=== PATIENT | female | born 1990 | race Two or more races ===

== ENCOUNTER → 2016-09-27 | Outpatient (CLI) | payer OTHER | LOC: RAD 08:50 | DX: R13.10 Dysphagia, unspecified (principal) | CPT/HCPCS: 74246 ==

== ENCOUNTER 2020-04-23 10:50 | Emergency (ER) | payer OTHER ==
[~2020-04-23 10:50] MED LIST: IBUPROFEN600 MG PO; MACROBID 100 M100 MG PO; NORCO 5-325 TA1 EACH PO; PERCOCET 5/325 T1 EA PO
[2020-04-23 11:51] LABS: RED BLOOD COUNT 3.45 M/UL (4.00-5.10); WHITE BLOOD COUNT 7.4 K/UL (4.5-11.0)
[2020-04-23 12:31] LABS: BUN/CREATININE RATIO 28 (0-10)
== END 2020-04-23 13:25 | disposition home or self-care (01) ==
LOC: ER1 10:50
PROVIDERS: Physician Assistant
DX: O99.012 Anemia complicating pregnancy, second trimester (principal); O99.282 Endocrine, nutritional and metabolic diseases complicating pregnancy, second trimester; E16.2 Hypoglycemia, unspecified; Z3A.27 27 weeks gestation of pregnancy
CPT/HCPCS: 80053; 80307; 81001; 82962; 83605; 85025; 87086; 99284

== ENCOUNTER 2020-07-06 12:13 | Inpatient (IN) | payer OTHER ==
[~2020-07-06] VITALS: Ht 165.1 cm; Wt 104.3 kg
[2020-07-06 14:29] LABS: RED BLOOD COUNT 3.83 M/UL (4.00-5.10); WHITE BLOOD COUNT 10.3 K/UL (4.5-11.0)
[2020-07-06] MEDS ORDERED: PRENATAL VITAM1 EAC3 PO (16:01)
[2020-07-06] MEDS ORDERED: SYNTHROID25 MCG PO (16:02)
[2020-07-06] MEDS ORDERED: FERREX 150 FOR1 EAC1 PO (18:44)
[2020-07-06] MEDS ORDERED: HYDROCODON-ACE1 EAC4 PO (18:44)
[2020-07-06] MEDS ORDERED: COLACE 100MG C100 MG PO (18:44)
[2020-07-06] MEDS ORDERED: IBUPROFEN600 MG PO (18:44)
[2020-07-07 05:30] LABS: HEMOGLOBIN 10.4 gm/dl (12.3-15.3)
== END 2020-07-07 21:32 | disposition home or self-care (01) | DRG 807 ==
LOC: GENOP 12:13 → OB 14:03
PROVIDERS: ADMIT Obstetrics & Gynecology
PROC: 10E0XZZ Delivery of Products of Conception, External Approach (ICD-10-PCS; principal; 2020-07-06)
PROC: 10907ZC Drainage of Amniotic Fluid, Therapeutic from Products of Conception, Via Natural or Artificial Opening (ICD-10-PCS; 2020-07-06)
DX: O26.853 Spotting complicating pregnancy, third trimester (principal); Z37.0 Single live birth; Z3A.37 37 weeks gestation of pregnancy; O99.283 Endocrine, nutritional and metabolic diseases complicating pregnancy, third trimester; E03.9 Hypothyroidism, unspecified; O99.353 Diseases of the nervous system complicating pregnancy, third trimester; G43.909 Migraine, unspecified, not intractable, without status migrainosus
CPT/HCPCS: 36415; 51702; 81001; 83518; 85014; 85018; 85025; 90707; 90715; J2590; J2795; J7120; U0002

== ENCOUNTER 2020-12-14 19:08 | Emergency (ER) | payer OTHER ==
[~2020-12-14 19:08] MED LIST changes: +COLACE 100MG C100 MG PO; +FERREX 150 FOR1 EAC1 PO; +HYDROCODON-ACE1 EAC4 PO; +PRENATAL VITAM1 EAC3 PO; +SYNTHROID25 MCG PO
[2020-12-14 19:53] LABS: HEMOGLOBIN 12.8 gm/dl (12.3-15.3); RED BLOOD COUNT 4.67 M/UL (4.00-5.10); WHITE BLOOD COUNT 8.1 K/UL (4.5-11.0)
[2020-12-14 20:20] LABS: BUN/CREATININE RATIO 20 (0-10)
== END 2020-12-14 19:43 | disposition expired ==
LOC: ER1 19:08
PROVIDERS: Physician Assistant
DX: R07.9 Chest pain, unspecified (principal); Z90.49 Acquired absence of other specified parts of digestive tract
CPT/HCPCS: 80053; 82550; 82553; 83690; 83735; 83874; 83880; 84484; 85025; 85379; 85610; 85730; 93005; 99285